=== PATIENT | male | born 1950 | race Hispanic/Latino ===

== ENCOUNTER 2018-12-23 22:27 | Emergency (ER) | payer OTHER ==
--- NOTE | 2018-12-23 23:43 | ER ---
Nurse's Notes [facility] Name: Olegario Hardy Age: 68 yrs Sex: Male : 1950 Arrival Date: 12/23/2018 Time: 22:28 Bed 19 Private MD: Diagnosis: Other otitis externa, right ear Presentation: 12/23 22:46 Presenting complaint: Patient states: C/O Right ear pain and sore throat that radiates wh to the back of his head 8/10 on a pain scale. Pt also states he feels like he's developing fever. Transition of care: patient was not received from another setting of care. Onset of symptoms was December 22, 2018. Risk Assessment: Do you want to hurt yourself or someone else? Patient reports no desire to harm self or others. Initial Sepsis Screen: Does the patient meet any 2 criteria? No. Patient's initial sepsis screen is negative. Does the patient have a suspected source of infection? No. Patient's initial sepsis screen is negative. Care prior to arrival: None. 22:46 Method Of Arrival: Ambulatory 22:46 Acuity: ZACH 4 Triage Assessment: 22:48 General: Appears. Historical: - Allergies: 22:51 No Known Allergies; - Home Meds: 22:51 metformin 500 mg Oral Tb24 1 tab once daily [Active]; hydrochlorothiazide 12.5 mg Oral wh cap 1 cap once daily [Active]; metoprolol tartrate 50 mg Oral tab 1 tab once daily [Active]; atorvastatin 10 mg oral tab 1 tab once daily [Active]; - PMHx: 22:51 Diabetes - NIDDM; Hyperlipidemia; Hypertension; - Immunization history:: Adult Immunizations unknown. - Social history:: Smoking status: Patient/guardian denies using tobacco. - Ebola Screening: : Patient negative for fever greater than or equal to 101.5 degrees Fahrenheit, and additional compatible Ebola Virus Disease symptoms Patient denies exposure to infectious person. Screenin:48 Abuse screen: Denies threats or abuse. Denies injuries from another. Nutritional screening: No deficits noted. Tuberculosis screening: No symptoms or risk factors identified. Fall Risk None identified. Assessment: 22:52 General: Appears in no apparent distress. Behavior is calm, cooperative, appropriate for age. Pain: Complains of pain in Right Ear Pain radiates to Back of the head Pain currently is 8 out of 10 on a pain scale. Quality of pain is described as aching. Neuro: Level of Consciousness is awake, alert, obeys commands, Oriented to person, place, time, situation, Appropriate for age [employer] are equal bilaterally. Cardiovascular: Heart tones S1 S2. Respiratory: Airway is patent Respiratory effort is even, unlabored, Respiratory pattern is regular, symmetrical, Breath sounds are clear bilaterally. GI: Abdomen is flat, non-distended. : No signs and/or symptoms were reported regarding the genitourinary system. EENT: Reports Ear pain and sore throat since yesterday. Derm: Skin is intact, is healthy with good turgor, Skin is pink, warm \T\ dry. normal. Musculoskeletal: Range of motion: intact in all extremities. 12/24 00:00 Reassessment: Patient appears in no apparent distress at this time. Patient and/or family updated on plan of care and expected duration. Pain level reassessed. Patient is alert, oriented x 3, equal unlabored respirations, skin warm/dry/pink. Vital Signs: 12/23 22:51 BP 152 / 82; Pulse 70; Resp 18; Temp 98.5; Pulse Ox 100% on R/A; 12/24 00:01 BP 138 / 89; Pulse 53; Resp 18; Pulse Ox 99% on R/A; ED Course: 12/23 22:28 Patient arrived in ED. ag3 22:43 Ivanna Campa FNP-C is [facility]. kb 22:43 Tc Saab MD is Attending Physician. kb 22:45 Christine Duarte is Primary Nurse. 22:48 Triage completed. 22:51 Arm band placed on right wrist. 22:51 Patient has correct armband on for positive identification. Bed in low position. Call light in reach. Side rails up X 1. Pulse ox on. NIBP on. 12/24 00:02 No provider procedures requiring assistance completed. Patient did not have IV access during this emergency room visit. Administered Medications: No medications were administered Outcome: 12/23 23:42 Discharge ordered by . 12/24 00:02 Discharged to home ambulatory, with family. Condition: good Discharge instructions given to patient, family, Instructed on discharge instructions, follow up and referral plans. medication usage, POC Otitis Externa Demonstrated understanding of instructions, follow-up care, medications, POC Prescriptions given X 1. 00:02 Patient left the ED. Signatures: Ivanna Campa, BARON CABRERA-Christine Andrews Alice ag3
--- NOTE | 2018-12-23 23:43 | EDPHYS ---
Physician Documentation [facility] Name: Olegario Hardy Age: 68 yrs Sex: Male : 1950 Arrival Date: 12/23/2018 Time: 22:28 Bed 19 Private MD: ED Physician Tc Saab HPI: 12/23 23:45 This 68 yrs old Male presents to ER via Ambulatory with complaints of Fever, kb Ear Pain. 23:45 The patient presents with pain, mild. The complaints affect the right ear. Onset: The kb symptoms/episode began/occurred 2 day(s) ago. Modifying factors: The symptoms are alleviated by nothing, the symptoms are aggravated by touching. Associated signs and symptoms: Pertinent positives: fever, sore throat. Severity of symptoms: At their worst the symptoms were mild in the emergency department the symptoms are unchanged. The patient has not experienced similar symptoms in the past. The patient has not recently seen a physician. Pt reports subjective fever today, right ear pain and sore throat for a couple of days. Historical: - Allergies: 22:51 No Known Allergies; wh - Home Meds: 22:51 metformin 500 mg Oral Tb24 1 tab once daily [Active]; hydrochlorothiazide 12.5 mg Oral wh cap 1 cap once daily [Active]; metoprolol tartrate 50 mg Oral tab 1 tab once daily [Active]; atorvastatin 10 mg oral tab 1 tab once daily [Active]; - PMHx: 22:51 Diabetes - NIDDM; Hyperlipidemia; Hypertension; wh - Immunization history:: Adult Immunizations unknown. - Social history:: Smoking status: Patient/guardian denies using tobacco. - Ebola Screening: : Patient negative for fever greater than or equal to 101.5 degrees Fahrenheit, and additional compatible Ebola Virus Disease symptoms Patient denies exposure to infectious person. ROS: 23:44 Neck: Negative for injury, pain, and swelling, Cardiovascular: Negative for chest pain, kb palpitations, and edema, Respiratory: Negative for shortness of breath, cough, wheezing, and pleuritic chest pain, Abdomen/GI: Negative for abdominal pain, nausea, vomiting, diarrhea, and constipation, Back: Negative for injury and pain, MS/Extremity: Negative for injury and deformity, Skin: Negative for injury, rash, and discoloration, Neuro: Negative for headache, weakness, numbness, tingling, and seizure. 23:44 Constitutional: Positive for fever. 23:44 ENT: Positive for ear pain, sore throat. Exam: 23:44 Constitutional: This is a well developed, well nourished patient who is awake, alert, kb and in no acute distress. Head/Face: Normocephalic, atraumatic. Chest/axilla: Normal chest wall appearance and motion. Nontender with no deformity. No lesions are appreciated. Cardiovascular: Regular rate and rhythm with a normal S1 and S2. No gallops, murmurs, or rubs. Normal PMI, no JVD. No pulse deficits. Respiratory: Lungs have equal breath sounds bilaterally, clear to auscultation and percussion. No rales, rhonchi or wheezes noted. No increased work of breathing, no retractions or nasal flaring. Abdomen/GI: Soft, non-tender, with normal bowel sounds. No distension or tympany. No guarding or rebound. No evidence of tenderness throughout. Skin: Warm, dry with normal turgor. Normal color with no rashes, no lesions, and no evidence of cellulitis. MS/ Extremity: Pulses equal, no cyanosis. Neurovascular intact. Full, normal range of motion. Neuro: Awake and alert, GCS 15, oriented to person, place, time, and situation. Cranial nerves II-XII grossly intact. Motor strength 5/5 in all extremities. Sensory grossly intact. Cerebellar exam normal. Normal gait. 23:44 ENT: External ear(s): are unremarkable, Ear canal(s): swelling, that is minimal, of the right canal, TM's: are normal, Nose: is normal, Mouth: is normal, Posterior pharynx: is normal. Vital Signs: 22:51 BP 152 / 82; Pulse 70; Resp 18; Temp 98.5; Pulse Ox 100% on R/A; 12/24 00:01 BP 138 / 89; Pulse 53; Resp 18; Pulse Ox 99% on R/A; MDM: 08 22:44 Patient medically screened. 23:44 Data reviewed: vital signs, nurses notes. Data interpreted: Pulse oximetry: on room air kb is 100 %. Interpretation: normal. Counseling: I had a detailed discussion with the patient and/or guardian regarding: the historical points, exam findings, and any diagnostic results supporting the discharge/admit diagnosis, lab results, the need for outpatient follow up, a family practitioner, to return to the emergency department if symptoms worsen or persist or if there are any questions or concerns that arise at home. 23:56 ED course: reports pt has had this problem intermittently for a month. Went to PCP sandra and was given a referral for ENT. That appt is on Thursday. . 12/23 22:53 Order name: Strep; Complete Time: 23:25 kb 12/23 23:24 Order name: Throat Culture EDMS Administered Medications: No medications were administered Disposition: 12/24 06:39 Co-signature as Attending Physician, Tc Saab MD I agree with the assessment and tw4 plan of care. Disposition: 12/23/18 23:42 Discharged to Home. Impression: Other otitis externa, right ear. - Condition is Stable. - Discharge Instructions: Otitis Externa, [id number], Ear Drops, Adult, [id number]. - Prescriptions for Ciprodex 0.3- 0.1 % Otic Drops, Suspension - instill 4 drop by OTIC route every 12 hours for 7 days , for ears ONLY; 1 Container. - Medication Reconciliation Form, Thank You Letter, Antibiotic Education, Prescription Opioid Use form. - Follow up: Emergency Department; When: As needed; Reason: Worsening of condition. Follow up: Private Physician; When: 2 - 3 days; Reason: Recheck today's complaints, Continuance of care, Re-evaluation by your physician. Signatures: Dispatcher [employer] [facility] Ivanna Campa, BARON CABRERA-Christine Andrews Terrence, MD MD tw4 Corrections: (The following items were deleted from the chart) 12/23 23:43 23:42 12/23/2018 23:42 Discharged to Home. Impression: Otitis media, unspecified, right kb ear. Condition is Stable. Forms are Medication Reconciliation Form, Thank You Letter, Antibiotic Education, Prescription Opioid Use. Follow up: Emergency Department; When: As needed; Reason: Worsening of condition. Follow up: Private Physician; When: 2 - 3 days; Reason: Recheck today's complaints, Continuance of care, Re-evaluation by your physician. 12/24 00:02 12/23 23:43 12/23/2018 23:42 Discharged to Home. Impression: Other otitis externa, wh right ear. Condition is Stable. Discharge Instructions: Otitis Externa, [id number], Ear Drops, Adult, [id number]. Prescriptions for Ciprodex 0.3-0.1 % Otic Drops, Suspension - instill 4 drop by OTIC route every 12 hours for 7 days , for ears ONLY; 1 Container. and Forms are Medication Reconciliation Form, Thank You Letter, Antibiotic Education, Prescription Opioid Use. Follow up: Emergency Department; When: As needed; Reason: Worsening of condition. Follow up: Private Physician; When: 2 - 3 days; Reason: Recheck today's complaints, Continuance of care, Re-evaluation by your physician. kb
== END 2018-12-24 00:02 | disposition home or self-care (01) ==
LOC: ER 22:27
DX: H60.8X1 Other otitis externa, right ear (principal); I10 Essential (primary) hypertension; E11.9 Type 2 diabetes mellitus without complications; E78.5 Hyperlipidemia, unspecified
CPT/HCPCS: 87070; 87081; 99283